=== PATIENT | female | born 1970 | race African-American/Black ===

== ENCOUNTER 2020-12-15 15:30 | Emergency (ER) | payer SELFPAY ==
[~2020-12-15] VITALS: Ht 167.6 cm; Wt 90.0 kg
[~2020-12-15 15:30] MED LIST: DOCU-153 PO; OXYC1TAB15 PO
[2020-12-15] MEDS ORDERED: DEXAMETHASONE 4 MG TABLET PO ONE (16:15)
[2020-12-15] MEDS ORDERED: KETOROLAC 30 MG/ML VIAL. IM ONE (16:15)
[2020-12-15 16:33] VITALS: BP 195/84
[2020-12-15] MEDS ORDERED: PRED20TA PO (16:58)
[2020-12-15] MEDS ORDERED: HYDR-2761 PO (16:58)
[2020-12-15] MEDS ORDERED: NAPR-695 PO (16:58)
--- NOTE | 2020-12-15 16:58 | PHYS DOC ---
Past Medical History Past Medical History: Anemia, Depression, Hypertension Past Surgical History: No Surgical History Smoking Status: Current Every Day Smoker Alcohol Use: Occasionally General Adult EDM: Chief Complaint: KNEE INJURY HPI: HPI: Patient is a 50 year old [f__sex] who presents with [] Review of Systems: Review of Systems: Constitutional: Denies fever or chills. [] Eyes: Denies change in visual acuity. [] HENT: Denies nasal congestion or sore throat. [] Respiratory: Denies cough or shortness of breath. [] Cardiovascular: Denies chest pain or edema. [] GI: Denies abdominal pain, nausea, vomiting, bloody stools or diarrhea. [] : Denies dysuria. [] Musculoskeletal: Denies back pain or joint pain. [] Integument: Denies rash. [] Neurologic: Denies headache, focal weakness or sensory changes. [] Endocrine: Denies polyuria or polydipsia. [] Lymphatic: Denies swollen glands. [] Psychiatric: Denies depression or anxiety. [] Heart Score: Risk Factors: Risk Factors: DM, Current or recent (<one month) smoker, HTN, HLP, family history of CAD, obesity. Risk Scores: Score 0 - 3: 2.5% MACE over next 6 weeks - Discharge Home Score 4 - 6: 20.3% MACE over next 6 weeks - Admit for Clinical Observation Score 7 - 10: 72.7% MACE over next 6 weeks - Early Invasive Strategies Current Medications: Current Medications Medications (Trade) Dose Ordered Sig/Jarvis Start Time Stop Time Status Last Admin Dose Admin Dexamethasone (Decadron) 10 mg 1X ONCE 12/15/20 16:15 12/15/20 16:17 DC Ketorolac Tromethamine (Toradol 30mg Vial) 30 mg 1X ONCE 12/15/20 16:15 12/15/20 16:17 DC Allergies: Allergies: Allergies Coded Allergies Type Severity Reaction Last Updated Verified Sulfa (Sulfonamide Antibiotics) Allergy Intermediate hives 06/05/20 Yes Physical Exam: PE: Constitutional: Well developed, well nourished, no acute distress, non-toxic appearance. [] HENT: Normocephalic, atraumatic, bilateral external ears normal, oropharynx moist, no oral exudates, nose normal. [] Eyes: PERRLA, EOMI, conjunctiva normal, no discharge. [] Neck: Normal range of motion, no tenderness, supple, no stridor. [] Cardiovascular:Heart rate regular rhythm, no murmur [] Lungs & Thorax: Bilateral breath sounds clear to auscultation [] Abdomen: Bowel sounds normal, soft, no tenderness, no masses, no pulsatile masses. [] Skin: Warm, dry, no erythema, no rash. [] Back: No tenderness, no CVA tenderness. [] Extremities: No tenderness, no cyanosis, no clubbing, ROM intact, no edema. [] Neurologic: Alert and oriented X 3, normal motor function, normal sensory function, no focal deficits noted. [] Psychologic: Affect normal, judgement normal, mood normal. [] Current Patient Data: Vital Signs: Vital Signs Date Time Temp Pulse Resp B/P (MAP) Pulse Ox O2 Delivery O2 Flow Rate FiO2 12/15/20 16:33 98.3 81 16 195/84 (121) 95 Room Air 98.3 EKG: EKG: [] Radiology/Procedures: Radiology/Procedures: PROCEDURE: KNEE LEFT 3V 3 view left knee HISTORY: Pain and swelling AP lateral oblique views left knee There is marginal spurring of all 3 compartments. There is no lytic destructive changes. There is a large dense effusion. IMPRESSION: 1. Marked tricompartmental osteoarthrosis. 2. Large dense effusion could be a hemarthrosis from an occult tibial plateau fracture or an ACL tear. Arthropathy with a joint effusion would normally be less acute. Electronically signed by: Hira Alvarado III, MD (12/15/2020 5:06 PM) [facility] Course & Med Decision Making: Course & Med Decision Making Pertinent Labs and Imaging studies reviewed. (See chart for details) [] Dragon Disclaimer: Dragon Disclaimer: This electronic medical record was generated, in whole or in part, using a voice recognition dictation system. Departure Departure Impression: Primary Impression: Knee pain, left Qualified Codes: M25.562 - Pain in left knee Additional Impression: History of pseudogout Disposition: 01 DC HOME SELF CARE/HOMELESS Condition: STABLE Referrals: NO PCP (PCP) MICHEAL NEW MD Patient Instructions: Crutch Use, [id number], Knee Pain, [id number], Knee Wraps (Elastic Bandage) and RICE, Pseudogout Additional Instructions: ICE area 20 min on then leave off next 20 mins. Repeat several times daily as needed for next few days. Scripts Prednisone (PREDNISONE) 20 Mg Tablet 2 TAB PO DAILY, #8 TAB Start this prescription tomorrow, Wednesday12/16/20 Prov: TL VILLA DO 12/15/20 Naproxen (NAPROXEN) 375 Mg Tablet 375 MG PO TID PRN for PAIN, #30 TAB-CAP Prov: TL VILLA DO 12/15/20 Hydrocodone Bit/Acetaminophen (HYDROCODONE-APAP 5-325 ) 1 Tab Tablet 0.5-1 TAB PO PRN Q6HRS PRN for PAIN, #10 TAB 0 Refills Prov: TL VILLA DO 12/15/20 TL VILLA DO Dec 15, 2020 16:58
--- NOTE | 2020-12-15 17:09 | RAD ---
3 view left knee HISTORY: Pain and swelling AP lateral oblique views left knee There is marginal spurring of all 3 compartments. There is no lytic destructive changes. There is a l arge dense effusion. IMPRESSION: 1. Marked tricompartmental osteoarthrosis. 2. Large dense effusion could be a hemarthrosis from an occult tibial plateau fracture or an ACL tear . Arthropathy with a joint effusion would normally be less acute. Electronically signed by: Hira Alvarado III, MD (12/15/2020 5:06 PM) [facility]
== END 2020-12-15 17:25 | disposition home or self-care (01) ==
LOC: ER 15:30
DX: M25.562 Pain in left knee (principal); M11.20 Other chondrocalcinosis, unspecified site; F32.9 Major depressive disorder, single episode, unspecified; I10 Essential (primary) hypertension; F17.200 Nicotine dependence, unspecified, uncomplicated; D64.9 Anemia, unspecified; Z88.2 Allergy status to sulfonamides
CPT/HCPCS: 73562; 96372; 99283; J1885